=== PATIENT | male | born 1990 | race Asian ===

== ENCOUNTER 2022-01-10 14:57 | Outpatient (CLI) | payer MEDICAID ==
[~2022-01-10] VITALS: Ht 175.3 cm; Wt 122.5 kg
[2022-01-10] MEDS ORDERED: albuterol 2.5 MG/3 ML nebule NEB ONE (15:35)
== END 2022-01-10 23:59 | disposition home or self-care (01) ==
LOC: RT 14:57
PROVIDERS: ATTEND Family Medicine
DX: R94.2 Abnormal results of pulmonary function studies (principal); J45.40 Moderate persistent asthma, uncomplicated
CPT/HCPCS: 94060; 94760

== ENCOUNTER 2023-06-11 11:13 | Emergency (ER) | payer MEDICAID ==
[~2023-06-11] VITALS: Ht 175.3 cm; Wt 129.6 kg
[2023-06-11 11:52] VITALS: TEMP 98.1
[2023-06-11 11:53] LABS: BASOPHILS % (AUTO) 0.6 % (0-1); EOSINOPHILS % (AUTO) 0.2 % (0-6); HEMATOCRIT 45.7 % (42.0-52.0); HEMOGLOBIN 15.5 g/dl (14.0-17.9); LYMPHOCYTES # (AUTO) 1.1 X10'3 (1.1-4.8); LYMPHOCYTES % (AUTO) 15.5 % (21-51); MEAN CORPUSCULAR HEMOGLOBIN 29.1 PG (27.0-31.0); MEAN CORPUSCULAR HGB CONC 33.9 g/dL (33.0-36.5); MEAN CORPUSCULAR VOLUME 85.6 FL (78-98); MEAN PLATELET VOLUME 8.4 FL (7.4-10.4); MONOCYTES # (AUTO) 0.9 X10'3 (0-0.9); MONOCYTES % (AUTO) 12.7 % (2-12); NEUTROPHILS # (AUTO) 4.9 X10'3 (1.8-7.7); PLATELET COUNT 210 X10'3 (140-440); RED BLOOD COUNT 5.34 X10'6 (4.70-6.10); RED CELL DISTRIBUTION WIDTH 13.3 % (11.5-14.5); WHITE BLOOD COUNT 6.9 X10'3 (4.5-11.0)
[2023-06-11 12:32] LABS: ALANINE AMINOTRANSFERASE 65 U/L (12-78); ALBUMIN 3.4 G/DL (3.4-5.0); ALKALINE PHOSPHATASE 112 IU/L (46-116); ANION GAP 14 (8-16); ASPARTATE AMINO TRANSFERASE 33 U/L (10-37); BILIRUBIN,TOTAL 0.6 MG/DL (0.1-1.0); BLOOD UREA NITROGEN 12 MG/DL (7-18); BUN/CREATININE RATIO 8.6 (10.0-20.0); CALCIUM 8.5 MG/DL (8.5-10.1); CHLORIDE 101 MMOL/L (99-107); CREATININE 1.39 MG/DL (0.60-1.10); GLUCOSE 105 MG/DL (70-104); POTASSIUM 3.3 MMOL/L (3.5-5.1); SODIUM 137 MMOL/L (135-145); TOTAL CARBON DIOXIDE 22.4 MMOL/L (24-32); TOTAL PROTEIN 6.9 G/DL (6.4-8.2); eGFR 59 ML/MIN
[2023-06-11] MEDS ORDERED: ketorolac trometh. 30mg/ml inj. IV ONE (16:25)
[2023-06-11] MEDS ORDERED: ondansetron/PF 4mg/2ml inj IV ONE (16:25)
[2023-06-11] MEDS ORDERED: famotidine/PF 10 mg/ml inj IV ONE (16:25)
[2023-06-11] MEDS ORDERED: normal saline 1000ml 1,000 ML IV ONE (16:25)
[2023-06-11 16:26] VITALS: BP 113/70; PULSE 100; O2SAT 99
[2023-06-11] MEDS ORDERED: FAMO20TA47 PO (16:42)
[2023-06-11] MEDS ORDERED: ONDA4TAB12 PO (16:42)
[2023-06-11] MEDS ORDERED: potassium Cl 20 mEq SR tablet PO STA (16:47)
[2023-06-11 17:09] VITALS: RESP 20
== END 2023-06-11 17:26 | disposition home or self-care (01) ==
LOC: ER 11:13
DX: K52.89 Other specified noninfective gastroenteritis and colitis (principal); R07.89 Other chest pain; E86.0 Dehydration
CPT/HCPCS: 36415; 71045; 80053; 83880; 84484; 85025; 93005; 96374; 96375; 99285; J1885; J2405; J3490; J7030

== ENCOUNTER 2024-07-13 13:05 | Emergency (ER) | payer MEDICAID, OTHER ==
[~2024-07-13] VITALS: Ht 175.3 cm; Wt 126.4 kg
[~2024-07-13 13:05] MED LIST: FAMO20TA47 PO; ONDA-243 PO
[2024-07-13] MEDS: ondansetron/PF 4mg/2ml inj IV ONE (14:33)
[2024-07-13] MEDS: normal saline 1000ml 1,000 ML IV ONE ×2 (14:33→15:56)
[2024-07-13 15:20] LABS: BASOPHILS % (AUTO) 0.2 % (0-1); EOSINOPHILS % (AUTO) 0.3 % (0-6); HEMATOCRIT 49.6 % (42.0-52.0); HEMOGLOBIN 16.5 g/dl (14.0-17.9); LYMPHOCYTES # (AUTO) 0.3 X10'3 (1.1-4.8); LYMPHOCYTES % (AUTO) 1.9 % (21-51); MEAN CORPUSCULAR HEMOGLOBIN 29.1 PG (27.0-31.0); MEAN CORPUSCULAR HGB CONC 33.4 g/dL (33.0-36.5); MEAN CORPUSCULAR VOLUME 87.3 FL (78-98); MEAN PLATELET VOLUME 8.8 FL (7.4-10.4); MONOCYTES # (AUTO) 0.5 X10'3 (0-0.9); MONOCYTES % (AUTO) 3.7 % (2-12); NEUTROPHILS # (AUTO) 13.8 X10'3 (1.8-7.7); NEUTROPHILS % (AUTO) 93.9 % (42-75); PLATELET COUNT 275 X10'3 (140-440); RED BLOOD COUNT 5.68 X10'6 (4.70-6.10); RED CELL DISTRIBUTION WIDTH 13.6 % (11.5-14.5); WHITE BLOOD COUNT 14.7 X10'3 (4.5-11.0)
[2024-07-13 15:52] LABS: APTT 23 SECONDS (22-32); PROTHROMBIN TIME 10.6 SECONDS (9.0-12.0)
[2024-07-13 16:02] LABS: BILIRUBIN,URINE MODERATE (Neg); CLARITY,URINE CLOUDY (Clear); COLOR,URINE YELLOW (Yellow); GLUCOSE, URINE 100 mg/dl (Neg); KETONES,URINE TRACE mg/dl (Neg); LEUKOCYTE ESTERASE ,URINE NEGATIVE (Neg); NITRITES, URINE NEGATIVE (Neg); OCCULT BLOOD,URINE NEGATIVE (Neg); PROTEIN,URINE 30 mg/dl (Neg); UROBILINOGEN,URINE 0.2 E.U/dL (0.2-1.0)
[2024-07-13 16:04] LABS: ALANINE AMINOTRANSFERASE 42 U/L (12-78); ALBUMIN 3.8 G/DL (3.4-5.0); ALKALINE PHOSPHATASE 129 IU/L (46-116); ANION GAP 18 (8-16); ASPARTATE AMINO TRANSFERASE 16 U/L (10-37); BILIRUBIN,TOTAL 0.6 MG/DL (0.1-1.0); BLOOD UREA NITROGEN 15 MG/DL (7-18); BUN/CREATININE RATIO 11.8 (10.0-20.0); CHLORIDE 106 MMOL/L (99-107); CREATININE 1.27 MG/DL (0.60-1.10); GLUCOSE 142 MG/DL (70-104); LIPASE 29 U/L (16-77); POTASSIUM 3.2 MMOL/L (3.5-5.1); SODIUM 145 MMOL/L (135-145); TOTAL CARBON DIOXIDE 20.8 MMOL/L (24-32); TOTAL PROTEIN 7.6 G/DL (6.4-8.2); eCRCL 83 ML/MIN; eGFR 65 ML/MIN
[2024-07-13 16:08] LABS: UA COLLECTION TYPE VOIDED
[2024-07-13 16:09] LABS: MUCUS STRANDS MODERATE /LPF (Neg); SQUAMOUS EPITHELIAL CELL,UR MODERATE /LPF (FEW)
[2024-07-13 16:10] LABS: TRANSITIONAL EPI CELLS,URINE FEW /HPF
[2024-07-13 16:11] LABS: AMORPHOUS URATES 1+; BACTERIA,URINE FEW /HPF (Neg); CAL OXALATE CRYSTALS FEW /HPF (NEGATIVE); RBC,URINE 0-2 /HPF (0-2)
[2024-07-13] MEDS ORDERED: ONDA-245 PO (16:33)
[2024-07-13 17:15] VITALS: BP 137/94; PULSE 106; RESP 18; TEMP 98.6; O2SAT 97
== END 2024-07-13 17:16 | disposition home or self-care (01) ==
LOC: ER 13:06
DX: R11.2 Nausea with vomiting, unspecified (principal); R19.7 Diarrhea, unspecified; R10.84 Generalized abdominal pain; Z79.899 Other long term (current) drug therapy
CPT/HCPCS: 36415; 74176; 80053; 81001; 83690; 85025; 85610; 85730; 87088; 96361; 96374; 99285; J2405; J7030

== ENCOUNTER 2025-10-28 15:14 | Emergency (ER) | payer SELFPAY ==
[~2025-10-28] VITALS: Ht 175.3 cm; Wt 132.4 kg
[~2025-10-28 15:14] MED LIST changes: +ONDA-245 PO
--- NOTE | 2025-10-28 16:29 | Physician Documentation ---
History of Present Illness ~ Chief Complaint: Cough Stated Complaint: SOB Time Seen by MD: 15:24 OK to notify your PCP?: Yes Source: patient Mode of Arrival: POV Exam Limitations: no limitations HPI Reports having a lingering cough for the past month. He reports in the past couple of days it has become a productive cough with green-yellow sputum. He denies having any fevers. He reports that he has been having some increased shortness of breath. He has a history of asthma which was quite bad as a child but he does typically have annual exacerbations. He no longer has an albuterol inhaler for nebulizer. Denies any chest pain. Medication Reconciliation Allergies: Coded Allergies: No Known Allergies (Unverified , 07/13/24) Scheduled Famotidine (Pepcid AC), 1 TAB PO DAILY Ondansetron 8mg ODT (Ondansetron Odt), 1 TAB PO Q6H Prednisone* (Prednisone*), 2 TAB PO DAILY Scheduled PRN Albuterol Sulfate (Ventolin Hfa), 2 PUFFS INH Q4HPRN PRN for wheezing ONDANSETRON ODT 4mg tablet (Ondansetron Odt), 1 TABLET PO Q6H PRN for n ausea/vomiting Past Medical History Past Medical History: Asthma Past Surgical History: no surgical history Alcohol Use: None Drug Use: none Lives with: Family Lives In: Home Review of Systems All Other Systems at this time: Reviewed and Negative Physical Exam Vital Signs: RN Vital Signs have been reviewed: Yes, Temperature: 96.6, Heart Rate: 118, Respiratory Rate: 19, BP: 133/92, Pulse Oximetry: 96, Weight: 132.400 Pulse Oximetry Reflects: adequate oxygenation Physical Exam General: Alert, no apparent distress. HEENT: PERRL, EOMI, no injection, moist mucous membranes. Neck: Full range of motion. Respiratory: Diminished breath sounds throughout, no rhonchi or rales. Diffuse wheezes throughout Chest: No accessory muscle use. Cardiovascular: Regular rate and rhythm, no murmurs. Gastrointestinal: Soft, nontender, nondistended. Bowels sounds present. Extremities: Normal range of motion, no deformity. Neurologic: Oriented x4. Psychiatric: Normal mood and affect. Skin: Normal color, warm and dry. No edema, no ecchymosis. Progress Results/Orders Results/Orders Completed Orders - HALIMA COLEY [employer] Ipratropium/Albuterol Nebule (Ipratrop/A (10/28/25 16:23) Prednisone Tablet (Prednisone Tablet) (10/28/25 16:25) Medications Received in ER Medications (Trade) Dose Ordered Sig/Vanessa Route PRN Reason Start Time Stop Time Status Last Admin Dose Admin (ipratrop/ albuterol 0.5-3(2.5) MG/3ml nebule) 3 ml ONCE STAT NEB 10/28/25 16:23 10/28/25 16:31 DC 10/28/25 16:52 3 ML (predniSONE tablet) 40 mg ONCE ONCE PO 10/28/25 16:25 10/28/25 16:31 DC 10/28/25 16:36 40 MG Vital Signs 10/28/25 10/28/25 10/28/25 10/28/25 15:18 16:53 16:58 17:15 Temp 96.6 96.6 Pulse 118 91 108 93 Resp 19 17 16 18 B/P (MAP) 133/92 142/79 Pulse Ox 96 99 99 O2 Delivery Room Air* Room Air* O2 Flow Rate 0 0 FiO2 21 21 Medical Decision Making Additional information obtaine: old records Findings Has a history of asthma. Denies any chest pain. Reports that he has symptoms like this every year in the fall when he gets sick. Physical exam reveals dimin ished breath sounds with some diffuse wheezes throughout but no crackles. No evidence of fever or purulent sputum which would indicate a bacterial infection. Tachycardic and tachypneic on arrival, unable to lay flat. Reports that he has been having a cough which has now turned productive. Does not have any albuterol prescriptions. Provided patient with a DuoNeb treatment while in the department as well as the 1st dose of prednisone pack for asthma exacerbation. Albuterol inhaler and prednisone sent to pharmacy. Present expresses relief with DuoNeb treatment. Differential Dx:Considerations: Include: Allergic rhinitis, Influenza, Pneumonia, Pnuemonitis, URI Departure Disposition: HOME / SELF CARE / HOMELESS Impression: Primary Impression: Asthma Additional Impression: Cough Condition: Stable Discharge Instructions: Asthma, Adult, [id number], Cough, Adult Additional Instructions: Return back here for any new or worsening symptoms. Please see your primary care provider in the next week. Referrals: NO PRIMARY CARE PROVIDER (PCP) Prescriptions Prednisone* (Prednisone*) 20 Mg Tablet 2 TAB PO DAILY for 5 Days, #10 TAB Prov: HALIMA COLEY 10/28/25 Albuterol Sulfate (Ventolin Hfa) 90 Mcg Hfa.aer.ad 2 PUFFS INH Q4HPRN PRN for wheezing for 30 Days, #18 GM 0 Refills Prov: HALIMA COLEY 10/28/25 Education Educated: Patient Educated regarding: diagnosis, treatment, prognosis, need for follow up Additional Comment Medical Screen Exam This patient recieved a medical screening examination. After reviewing the individual's medical complaints with presenting symptoms and performing an appropriate physical examination, it was determined that no immediate life- threatening emergency medical condition is present. This individual is also not a women having contractions. Signature Scribe Signature: . Attestation: Scribed for Halima Coley by Halima Rausch NP . 10/28/25 20:03 Parts of this note were created using [employer] voice recognition software [employer]. While efforts were made to correct any mistakes made by this voice recognition software program, nonsensical phrases may remain in this note. In addition, there may be errors and syntax, grammar, content and spelling. HALIMA COLEY Oct 28, 2025 16:29
[2025-10-28] MEDS ORDERED: PRED20TA PO (16:48)
[2025-10-28] MEDS ORDERED: ALBU18HF2 INH (16:48)
[2025-10-28] MEDS: ipratropium/albuterol 3ml nebule NEB STA (16:52)
[2025-10-28 16:53] VITALS: PULSE 91; RESP 17
[2025-10-28 16:58] VITALS: PULSE 108; RESP 16; O2SAT 99
[2025-10-28 17:15] VITALS: BP 142/79; PULSE 93; RESP 18; TEMP 96.6; O2SAT 99
== END 2025-10-28 17:16 | disposition home or self-care (01) ==
LOC: ER 15:15
DX: J45.909 Unspecified asthma, uncomplicated (principal); R05.9 Cough, unspecified; Z79.899 Other long term (current) drug therapy
CPT/HCPCS: 94640; 99283; J7512; 94760